=== PATIENT | male | born 1995 | race Caucasian/White ===

== ENCOUNTER 2022-02-20 11:23 | Emergency (ER) | payer BC ==
[~2022-02-20] VITALS: Ht 180.3 cm; Wt 65.0 kg
[2022-02-20 11:28] VITALS: BP 125/67
[2022-02-20] MEDS ORDERED: AMOX1TAB16 MT (13:38)
== END 2022-02-20 13:52 | disposition home or self-care (01) ==
LOC: ER 11:23
DX: T16.2XXA Foreign body in left ear, initial encounter (principal); M79.5 Residual foreign body in soft tissue; X58.XXXA Exposure to other specified factors, initial encounter; Y93.89 Activity, other specified; Y92.018 Other place in single-family (private) house as the place of occurrence of the external cause
CPT/HCPCS: 99281; 99283